=== PATIENT | female | born 1995 | race Caucasian/White ===

== ENCOUNTER 2023-09-21 16:48 | Emergency (ER) | payer BC ==
[~2023-09-21] VITALS: Ht 152.4 cm; Wt 58.0 kg
[2023-09-21 16:59] VITALS: BP 114/65; O2SAT 100
[2023-09-21] MEDS ORDERED: TETANUS, DIPHTHERIA, PERTUSSIS VAC/PF 0.5ML (>10YR OLD) IM ONE ×2 (19:45→21:45)
[2023-09-21] MEDS ORDERED: BACITRACIN ZINC OINT UDPKT TOP ONE (19:45)
[2023-09-21] MEDS ORDERED: LIDOCAINE HCL/PF 1% 10 MG/ML 5ML VIAL INFIL ONE (19:45)
[2023-09-21] MEDS ORDERED: BO1 TP (22:10)
[2023-09-21 22:33] VITALS: PULSE 92; RESP 20; TEMP 98.4
== END 2023-09-21 22:36 | disposition home or self-care (01) ==
LOC: ER 16:48
DX: L03.031 Cellulitis of right toe (principal); R42 Dizziness and giddiness; Z98.890 Other specified postprocedural states; Z90.89 Acquired absence of other organs
CPT/HCPCS: 81025; 90715; 11730; 90471; 99284; J3490; Z7610 ×5